=== PATIENT | male | born 1985 | race Caucasian/White ===

== ENCOUNTER 2020-08-06 00:45 | Emergency (ER) | payer OTHER ==
[~2020-08-06] VITALS: Ht 180.3 cm; Wt 95.3 kg
--- NOTE | 2020-08-06 00:58 | NUR ---
Dr. Hernandez at bedside for [facility].
[2020-08-06] MEDS ORDERED: APIX5TAB PO (01:06)
[2020-08-06] MEDS ORDERED: LORAZEPAM 0.5 MG TABLET PO ONE (01:45)
--- NOTE | 2020-08-06 02:26 | NUR ---
Patient given written and verbal discharge instructions. Patient verbalizes understanding of instructions. Patient is ambulatory with steady gait. Refuses offer of snf placement. Patient given list of available shelters in surrounding area. patient refused to sign homeless patient waiver form.
[2020-08-06 02:29] VITALS: BP 150/76
== END 2020-08-06 02:29 | disposition home or self-care (01) ==
LOC: ER 00:53
DX: S80.12XA Contusion of left lower leg, initial encounter (principal); Y04.2XXA Assault by strike against or bumped into by another person, initial encounter; Y92.89 Other specified places as the place of occurrence of the external cause; Z86.718 Personal history of other venous thrombosis and embolism; R03.0 Elevated blood-pressure reading, without diagnosis of hypertension
CPT/HCPCS: A4663